=== PATIENT | male | born 1970 | race Caucasian/White ===

== ENCOUNTER 2017-11-17 19:55 | Emergency (ER) | payer OTHER ==
[~2017-11-17] VITALS: Ht 180.3 cm; Wt 74.8 kg
[~2017-11-17 19:55] MED LIST: ACET-787 PO
[2017-11-17 20:00] VITALS: BP 121/86
[2017-11-17 22:56] VITALS: BP 121/86
== END 2017-11-17 22:56 | disposition home or self-care (01) ==
LOC: MED 19:55
DX: I86.8 Varicose veins of other specified sites (principal); E11.9 Type 2 diabetes mellitus without complications; I10 Essential (primary) hypertension; Z88.1 Allergy status to other antibiotic agents; Z79.899 Other long term (current) drug therapy
CPT/HCPCS: 12001; 90715; 99283

== ENCOUNTER 2018-01-01 08:55 | Emergency (ER) | payer OTHER ==
[~2018-01-01] VITALS: Ht 180.3 cm; Wt 73.0 kg
[2018-01-01 09:02] VITALS: BP 128/71
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
--- NOTE | 2018-01-01 09:08 | NUR ---
PT AMBULATES TO BED 2
[2018-01-01] MEDS ORDERED: NACL 0.9% 1,000 ML IV ONE (10:00)
[2018-01-01] MEDS ORDERED: KETOROLAC 30 MG/ML VIAL IVP ONE (10:00)
--- NOTE | 2018-01-01 11:30 | NUR ---
PT RESTING COMFORTABLY IN BED. NO S/S OF DISTRESS NOTED.
[2018-01-01 12:14] LABS: BASOPHILS % (AUTO) 0.5 % (0.0-2.0); EOSINOPHILS # (AUTO) 0.1 K/uL (0-0.4); EOSINOPHILS % (AUTO) 2.7 % (0.0-4.0); HEMATOCRIT 32.1 % (36-52); HEMOGLOBIN 9.5 g/dL (12.0-18.0); LYMPHOCYTES # (AUTO) 0.9 K/uL (2.0-11.5); MEAN CORPUSCULAR HEMOGLOBIN 18 pg (27-31); MEAN CORPUSCULAR HGB CONC 30 g/dL (33-37); MEAN CORPUSCULAR VOLUME 62.1 fL (80-94); MONOCYTES # (AUTO) 0.7 K/uL (0.8-1.0); MONOCYTES % (AUTO) 20.7 % (1.7-9.3); NEUTROPHILS # (AUTO) 1.6 K/uL (1.8-7.7); NEUTROPHILS % (AUTO) 49.1 % (42.2-75.2); PLATELET COUNT (AUTO) 128 K/uL (140-450); RED BLOOD CELL COUNT(AUTO) 5.17 MIL/uL (4.20-6.10); RED CELL DISTRIBUTION WIDTH 22.5 % (11.6-13.7); WHITE BLOOD COUNT (AUTO) 3.3 K/uL (4.8-10.8)
[2018-01-01 12:39] LABS: ALBUMIN 2.5 g/dL (3.4-5.0); CARBON DIOXIDE 27.5 mmol/L (21-32); CREATININE 0.6 mg/dL (0.7-1.3); POTASSIUM 3.5 mmol/L (3.5-5.1); TOTAL BILIRUBIN 1.1 mg/dL (0.0-1.0)
--- NOTE | 2018-01-01 13:31 | NUR ---
PT DSAT ON MONITOR TO 88%, 2L O2 VIA N/C PUT ON. O2 UP TO 92%. NO S/S OF DISTRESS
[2018-01-01 14:06] VITALS: BP 128/69
--- NOTE | 2018-01-01 14:07 | NUR ---
Patient discharged with v/s stable. Written and verbal after care instructions given and explained. Patient alert, oriented and verbalized understanding of instructions. Ambulatory with steady gait. All questions addressed prior to discharge. ID band removed. Patient advised to follow up with PMD. Rx of LOMOTIL 2.5MG-0.025 MG; NAPROSYN 375 MG given. Patient educated on indication of medication including possible reaction and side effects. Opportunity to ask questions provided and answered.
== END 2018-01-01 14:07 | disposition home or self-care (01) ==
LOC: MED 08:55
DX: E86.0 Dehydration (principal); R19.7 Diarrhea, unspecified; G89.29 Other chronic pain; E11.9 Type 2 diabetes mellitus without complications; I10 Essential (primary) hypertension; F17.210 Nicotine dependence, cigarettes, uncomplicated; Z88.0 Allergy status to penicillin
CPT/HCPCS: 36415; 80053; 84484; 85025; 93005; 96361; 96374; 99285; J1885; J7030

== ENCOUNTER 2018-09-02 23:25 | Emergency (ER) | payer OTHER ==
[~2018-09-02] VITALS: Ht 182.9 cm; Wt 81.6 kg
--- NOTE | 2018-09-02 23:29 | NUR ---
PT TAKEN TO BED 7
--- NOTE | 2018-09-02 23:29 | NUR ---
Dr. Casanova evaluating patient at bedside.
[2018-09-02 23:32] VITALS: BP 130/93
--- NOTE | 2018-09-02 23:39 | NUR ---
48/M PRESENTS TO ED, C/O L EAR PAIN X2 DAYS. REPORTS DECREASED HEARING. AOX4, GCS 15, RR EVEN AND UNLABORED. HX "SCREWS ON LEG"
--- NOTE | 2018-09-02 23:54 | NUR ---
Patient discharged with v/s stable. Written and verbal after care instructions given and explained. Patient alert, oriented and verbalized understanding of instructions. Ambulatory with steady gait. All questions addressed prior to discharge. ID band removed. Patient advised to follow up with PMD. Rx of DEBROX given. Patient educated on indication of medication including possible reaction and side effects. Opportunity to ask questions provided and answered.
[2018-09-02 23:55] VITALS: BP 130/93
== END 2018-09-02 23:54 | disposition home or self-care (01) ==
LOC: MED 23:25
DX: H92.02 Otalgia, left ear (principal); Z79.891 Long term (current) use of opiate analgesic; Z88.0 Allergy status to penicillin
CPT/HCPCS: 99282

== ENCOUNTER 2018-10-12 18:29 | Emergency (ER) | payer OTHER ==
[~2018-10-12] VITALS: Ht 175.3 cm; Wt 77.1 kg
--- NOTE | 2018-10-12 18:29 | NUR ---
Patient BIBA ACLS, transferred to bed 4. RN evaluating patient at bedside.
--- NOTE | 2018-10-12 18:30 | NUR ---
48 Y MALE BIBA C/O BLOODY STOOL. PT STATES 3 EPISODES OF BRIGHT RED BLOOD IN STOOL. +ETOH, STATING HE DRANK 3 TALL BOYS. PER [facility], PT WAS FOUND OUTSIDE LAYING ON THE FRONT YARD OF HIS HOUSE, WITH HIS PRESCRIPTION BOTTLES NEXT TO HIM. [facility] UNSURE WHETHER PT OVERDOESED ON MEDICATIONS. PT AAOX4, COOPERATIVE, PINPOINT PUPILS. PT DENIES USING DRUGS. VSS AT THIS TIME. BED IS DOWN, LOCKED, BED RAIL X 1, ERMD NOTIFIED. PMH- DENIES RX- MIRTAZAPINE, CENTRUM MULTIVITAMINS, LITHIUM CARBONATE, HYDROCODONE, ABILIFY
[2018-10-12 18:38] VITALS: BP 143/80
--- NOTE | 2018-10-12 18:43 | NUR ---
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
[2018-10-12] MEDS ORDERED: NACL 0.9% 1,000 ML IV ONE (18:50)
[2018-10-12 19:01] LABS: BASOPHILS % (AUTO) 0.5 % (0.0-2.0); EOSINOPHILS # (AUTO) 0.2 K/uL (0-0.4); EOSINOPHILS % (AUTO) 3.8 % (0.0-4.0); HEMATOCRIT 35.9 % (36-52); HEMOGLOBIN 11.5 g/dL (12.0-18.0); LYMPHOCYTES # (AUTO) 1.4 K/uL (2.0-11.5); LYMPHOCYTES % (AUTO) 29.2 % (20.5-51.1); MEAN CORPUSCULAR HEMOGLOBIN 23 pg (27-31); MEAN CORPUSCULAR HGB CONC 32 g/dL (33-37); MEAN CORPUSCULAR VOLUME 71.8 fL (80-94); MONOCYTES # (AUTO) 0.7 K/uL (0.8-1.0); MONOCYTES % (AUTO) 14.9 % (1.7-9.3); NEUTROPHILS # (AUTO) 2.5 K/uL (1.8-7.7); NEUTROPHILS % (AUTO) 51.6 % (42.2-75.2); PLATELET COUNT (AUTO) 174 K/uL (140-450); RED BLOOD CELL COUNT(AUTO) 4.99 MIL/uL (4.20-6.10); RED CELL DISTRIBUTION WIDTH 21.2 % (11.6-13.7); WHITE BLOOD COUNT (AUTO) 4.9 K/uL (4.8-10.8)
--- NOTE | 2018-10-12 19:11 | NUR ---
PT BEING TAKEN TO CT
[2018-10-12 19:12] LABS: APPEARANCE,URINE CLEAR (CLEAR); BILIRUBIN,URINE NEGATIVE (NEGATIVE); BLOOD, URINE NEGATIVE (NEGATIVE); COLOR,URINE YELLOW (YELLOW); LEUKOCYTE ESTERASE ,URINE NEGATIVE (NEGATIVE); NITRITE, URINE NEGATIVE (NEGATIVE); UGLUCOSE NEGATIVE (NEGATIVE)
[2018-10-12 19:13] LABS: ANION GAP 11.2 (8-16); CARBON DIOXIDE 27.8 mmol/L (21-32); CHLORIDE 106 mmol/L (98-107); CREATININE 0.8 mg/dL (0.7-1.3); GFR ARICAN-AMERICAN 133 mL/min (>90); GLUCOSE 97 mg/dL (74-106); SODIUM SERUM 142 mmol/L (136-145); UREA NITROGEN, BLOOD 8 mg/dL (7-18)
[2018-10-12 19:15] LABS: BARBITURATE, URINE NEG. ng/ml (NEG <=200); BENZODIAZEPINE, URINE NEG. ng/mL (NEG <=200); CANNABINOID, URINE NEG. ng/mL (NEG <=50); COCAINE, URINE NEG. ng/mL (NEG <=300); OPIATE, URINE NEG. ng/mL (NEG <=2000); PHENCYCLIDINE SCREEN,URINE NEG. ng/mL (NEG <=25)
[2018-10-12 19:19] LABS: ALBUMIN 2.9 g/dL (3.4-5.0); ASPARTATE AMINOTRANSFERASE 81 U/L (15-37); TOTAL BILIRUBIN 1.3 mg/dL (0.0-1.0)
[2018-10-12 19:20] LABS: ACETAMINOPHEN < 0.5 ug/ml (10-30); SALICYLATE < 2.8 mg/dL (2.8-20.0)
[2018-10-12] MEDS ORDERED: ESK300 PO (19:30)
--- NOTE | 2018-10-12 19:32 | NUR ---
PT RETURNED FROM CT AT THIS TIME
[2018-10-12] MEDS ORDERED: ARIP5TAB8 PO (19:37)
[2018-10-12] MEDS ORDERED: MIRT15TA PO (19:37)
[2018-10-12] MEDS ORDERED: MULT-2540 PO (19:37)
[2018-10-12] MEDS ORDERED: ACET-787 PO (19:37)
--- NOTE | 2018-10-12 19:39 | NUR ---
VSS AT THIS TIME. PT SLEEPING IN BED, FAMILY BEDSIDE
--- NOTE | 2018-10-12 19:58 | NUR ---
DR REBOLLEDO AT BEDSIDE
--- NOTE | 2018-10-12 20:36 | NUR ---
PT SLEEPING IN BED, VSS AT THIS TIME
[2018-10-12 20:49] VITALS: BP 136/71
--- NOTE | 2018-10-12 20:49 | NUR ---
Patient discharged with v/s stable. Written and verbal after care instructions given and explained. Patient verbalized understanding. Ambulatory with steady gait. All questions addressed prior to discharge. Advised to follow up with PMD.
--- NOTE | 2018-10-12 20:50 | NUR ---
PTS FATHER AT BEDSIDE AND DRIVING HIM HOME
== END 2018-10-12 20:49 | disposition home or self-care (01) ==
LOC: MED 18:29
DX: F10.129 Alcohol abuse with intoxication, unspecified (principal); E11.9 Type 2 diabetes mellitus without complications; I10 Essential (primary) hypertension; Z79.891 Long term (current) use of opiate analgesic; Z79.899 Other long term (current) drug therapy; Z88.0 Allergy status to penicillin
CPT/HCPCS: 36415; 70450; 71045; 72125; 80053; 80305; 81003; 82550; 84484; 85025; 93005; 96360; 99284; G0480; G0482; Q0092; J7030

== ENCOUNTER 2019-01-20 22:58 | Emergency (ER) | payer OTHER ==
[~2019-01-20] VITALS: Ht 182.9 cm; Wt 81.6 kg
[~2019-01-20 22:58] MED LIST changes: +ARIP5TAB8 PO; +ESK300 PO; +MIRT15TA PO; +MULT-2540 PO
[2019-01-20 23:00] VITALS: BP 139/90
--- NOTE | 2019-01-20 23:03 | NUR ---
TO LOBBY VIA W/C A/W BED
--- NOTE | 2019-01-20 23:37 | NUR ---
PT WHEELCHAIR ASSISTED TO BED 10
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
--- NOTE | 2019-01-20 23:52 | NUR ---
Dr. Valera examining patient.
[2019-01-21 00:05] LABS: BASOPHILS % (AUTO) 0.7 % (0.0-2.0); EOSINOPHILS # (AUTO) 0.1 K/uL (0-0.4); EOSINOPHILS % (AUTO) 2.9 % (0.0-4.0); HEMATOCRIT 33.7 % (36-52); HEMOGLOBIN 10.7 g/dL (12.0-18.0); LYMPHOCYTES # (AUTO) 1.1 K/uL (2.0-11.5); LYMPHOCYTES % (AUTO) 27.6 % (20.5-51.1); MEAN CORPUSCULAR HEMOGLOBIN 24 pg (27-31); MEAN CORPUSCULAR HGB CONC 32 g/dL (33-37); MEAN CORPUSCULAR VOLUME 74.2 fL (80-94); MONOCYTES # (AUTO) 0.7 K/uL (0.8-1.0); NEUTROPHILS # (AUTO) 2.2 K/uL (1.8-7.7); NEUTROPHILS % (AUTO) 52.8 % (42.2-75.2); PLATELET COUNT (AUTO) 114 K/uL (140-450); RED BLOOD CELL COUNT(AUTO) 4.54 MIL/uL (4.20-6.10)
[2019-01-21 00:14] LABS: ANION GAP 10.3 (8-16); CARBON DIOXIDE 28.8 mmol/L (21-32); CREATININE 0.7 mg/dL (0.7-1.3); POTASSIUM 3.1 mmol/L (3.5-5.1); RED CELL DISTRIBUTION WIDTH 21.6 % (11.6-13.7); WHITE BLOOD COUNT (AUTO) 4.1 K/uL (4.8-10.8)
[2019-01-21 00:19] LABS: ALBUMIN 2.7 g/dL (3.4-5.0); TOTAL BILIRUBIN 1.2 mg/dL (0.0-1.0)
--- NOTE | 2019-01-21 01:11 | NUR ---
PT RETURN TO CT
--- NOTE | 2019-01-21 01:30 | NUR ---
PT LAYING IN BED SLEEPING, AROUSABLE TO NAME, RR EVEN AND UNLABORED. REPORTS 8/10 LLQ PAIN RADIATING DIFFUSELY, TOLERABLE AT THIS TIME. VSS. ALL NEEDS MET.
[2019-01-21 01:36] LABS: APPEARANCE,URINE CLEAR (CLEAR); BILIRUBIN,URINE NEGATIVE (NEGATIVE); BLOOD, URINE NEGATIVE (NEGATIVE); COLOR,URINE YELLOW (YELLOW); LEUKOCYTE ESTERASE ,URINE NEGATIVE (NEGATIVE); NITRITE, URINE NEGATIVE (NEGATIVE); UGLUCOSE NEGATIVE (NEGATIVE)
[2019-01-21 02:09] LABS: PROTHROMBIN TIME 10.4 secs (10.8-13.4)
[2019-01-21] MEDS ORDERED: PANTOPRAZOLE 40 MG INJ VIAL IVP ONE (03:25)
--- NOTE | 2019-01-21 04:00 | NUR ---
ACCOMPANIED DR JUSTICE FOR GUIAC TEST
--- NOTE | 2019-01-21 04:29 | NUR ---
PT LAYING IN BED SLEEPING, RR EVEN AND UNLABORED, AROUSABLE TO NAME. VSS. ALL NEEDS MET AT THIS TIME.
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
[2019-01-21 05:45] VITALS: BP 134/88
== END 2019-01-21 05:45 | disposition home or self-care (01) ==
LOC: MED 22:58
DX: F10.129 Alcohol abuse with intoxication, unspecified (principal); K62.5 Hemorrhage of anus and rectum; K74.60 Unspecified cirrhosis of liver; I10 Essential (primary) hypertension; E11.9 Type 2 diabetes mellitus without complications; Z88.0 Allergy status to penicillin; Z86.19 Personal history of other infectious and parasitic diseases; Z79.899 Other long term (current) drug therapy
CPT/HCPCS: 36415; 74177; 80053; 81003; 83690; 85025; 85610; 85730; 96374; 99284; C9113; Q9967

== ENCOUNTER 2019-04-08 16:16 | Emergency (ER) | payer OTHER ==
[~2019-04-08] VITALS: Ht 177.8 cm; Wt 80.4 kg
[2019-04-08 17:07] VITALS: BP 107/47
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
--- NOTE | 2019-04-08 17:49 | NUR ---
pt eloped without being seen by provider.
== END 2019-04-08 17:49 | disposition left against medical advice (07) ==
LOC: MED 16:16
DX: M79.661 Pain in right lower leg (principal); Z53.21 Procedure and treatment not carried out due to patient leaving prior to being seen by health care provider

== ENCOUNTER 2019-10-29 15:17 | Emergency (ER) | payer OTHER ==
[~2019-10-29] VITALS: Ht 175.3 cm; Wt 83.9 kg
[2019-10-29 15:28] VITALS: BP 95/56
[2019-10-29] MEDS ORDERED: NACL 0.9% 1,000 ML IV ONE (16:20)
[2019-10-29 16:52] LABS: BASOPHILS % (AUTO) 0.5 % (0.0-2.0); EOSINOPHILS # (AUTO) 0.1 K/uL (0-0.4); EOSINOPHILS % (AUTO) 3.5 % (0.0-4.0); HEMATOCRIT 28.5 % (36-52); HEMOGLOBIN 9.3 g/dL (12.0-18.0); LYMPHOCYTES % (AUTO) 31.1 % (20.5-51.1); MEAN CORPUSCULAR HEMOGLOBIN 27 pg (27-31); MEAN CORPUSCULAR HGB CONC 33 g/dL (33-37); MEAN CORPUSCULAR VOLUME 82.8 fL (80-94); MONOCYTES # (AUTO) 0.5 K/uL (0.8-1.0); MONOCYTES % (AUTO) 15.3 % (1.7-9.3); NEUTROPHILS # (AUTO) 1.6 K/uL (1.8-7.7); NEUTROPHILS % (AUTO) 49.6 % (42.2-75.2); PLATELET COUNT (AUTO) 100 K/uL (140-450); RED BLOOD CELL COUNT(AUTO) 3.45 MIL/uL (4.20-6.10); RED CELL DISTRIBUTION WIDTH 23.1 % (11.6-13.7); WHITE BLOOD COUNT (AUTO) 3.2 K/uL (4.8-10.8)
[2019-10-29 17:04] LABS: APPEARANCE,URINE CLEAR (CLEAR); BILIRUBIN,URINE 1+ (NEGATIVE); BLOOD, URINE NEGATIVE (NEGATIVE); COLOR,URINE AMBER (YELLOW); LEUKOCYTE ESTERASE ,URINE NEGATIVE (NEGATIVE); NITRITE, URINE NEGATIVE (NEGATIVE); PH,URINE 6.5 (5.0-9.0); UGLUCOSE NEGATIVE (NEGATIVE)
[2019-10-29 17:08] LABS: PROTHROMBIN TIME 11.6 secs (10.8-13.4)
[2019-10-29 17:14] LABS: ALBUMIN 2.4 g/dL (3.4-5.0); ANION GAP 10.1 (8-16); CARBON DIOXIDE 28.6 mmol/L (21-32); CREATININE 0.8 mg/dL (0.6-1.3); POTASSIUM 3.7 mmol/L (3.5-5.1); TOTAL BILIRUBIN 1.8 mg/dL (0.0-1.0)
[2019-10-29 20:25] VITALS: BP 111/71
== END 2019-10-29 20:25 | disposition home or self-care (01) ==
LOC: MED 15:17
DX: M25.571 Pain in right ankle and joints of right foot (principal); D61.818 Other pancytopenia; E11.9 Type 2 diabetes mellitus without complications; F10.129 Alcohol abuse with intoxication, unspecified; G89.29 Other chronic pain; I10 Essential (primary) hypertension; Z88.0 Allergy status to penicillin
CPT/HCPCS: 36415; 80053; 81003; 84484; 85025; 85610; 85730; 86886; 86900; 86901; 93005; 99284; J7030

== ENCOUNTER 2020-03-24 11:21 | Emergency (ER) | payer OTHER ==
[~2020-03-24] VITALS: Ht 172.7 cm; Wt 73.9 kg
[~2020-03-24 11:21] MED LIST changes: -ACET-787 PO; +HYDR-5191 PO
[2020-03-24 11:24] VITALS: BP 97/58
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
[2020-03-24] MEDS ORDERED: KETOROLAC 60 MG/2 ML VIAL IM ONE (12:05)
[2020-03-24 12:14] LABS: BASOPHILS % (AUTO) 0.8 % (0.0-2.0); EOSINOPHILS # (AUTO) 0.1 K/uL (0-0.4); EOSINOPHILS % (AUTO) 2.8 % (0.0-4.0); HEMATOCRIT 34.6 % (36-52); HEMOGLOBIN 10.9 g/dL (12.0-18.0); LYMPHOCYTES # (AUTO) 1.2 K/uL (2.0-11.5); LYMPHOCYTES % (AUTO) 26.5 % (20.5-51.1); MEAN CORPUSCULAR HEMOGLOBIN 26 pg (27-31); MEAN CORPUSCULAR HGB CONC 31 g/dL (33-37); MEAN CORPUSCULAR VOLUME 82.9 fL (80-94); MONOCYTES # (AUTO) 0.9 K/uL (0.8-1.0); MONOCYTES % (AUTO) 19.6 % (1.7-9.3); NEUTROPHILS # (AUTO) 2.2 K/uL (1.8-7.7); NEUTROPHILS % (AUTO) 50.3 % (42.2-75.2); PLATELET COUNT (AUTO) 117 K/uL (140-450); RED BLOOD CELL COUNT(AUTO) 4.17 MIL/uL (4.20-6.10); WHITE BLOOD COUNT (AUTO) 4.4 K/uL (4.8-10.8)
--- NOTE | 2020-03-24 12:23 | NUR ---
PT TO XRAY VIA JUWAN.
[2020-03-24 12:27] LABS: ALBUMIN 2.9 g/dL (3.4-5.0); ANION GAP 10.5 (8-16); ASPARTATE AMINOTRANSFERASE 89 U/L (15-37); CARBON DIOXIDE 24.6 mmol/L (21-32); CHLORIDE 106 mmol/L (98-107); CREATININE 0.8 mg/dL (0.6-1.3); GFR ARICAN-AMERICAN 132 mL/min (>90); GLUCOSE 89 mg/dL (74-106); POTASSIUM 3.1 mmol/L (3.5-5.1); SODIUM SERUM 138 mmol/L (136-145); TOTAL BILIRUBIN 1.7 mg/dL (0.0-1.0); UREA NITROGEN, BLOOD 14 mg/dL (7-18)
--- NOTE | 2020-03-24 12:54 | NUR ---
DR ARANDA AT BEDSIDE EVALUATING PT.
[2020-03-24 12:59] LABS: ACETAMINOPHEN < 0.5 ug/ml (10-30); SALICYLATE < 2.8 mg/dL (2.8-20.0)
[2020-03-24 13:00] VITALS: BP 97/58
--- NOTE | 2020-03-24 13:01 | NUR ---
Patient discharged with v/s stable. Written and verbal after care instructions given and explained regard back pain . Patient alert, oriented and verbalized understanding of instructions. Ambulatory with steady gait. All questions addressed prior to discharge. ID band removed. Patient advised to follow up with PMD. Rx of medrol , motrin and tramadol given. Patient educated on indication of medication including possible reaction and side effects. Opportunity to ask questions provided and answered.
[2020-03-24 14:08] LABS: BARBITURATE, URINE NEGATIVE ng/ml (NEG <=200); BENZODIAZEPINE, URINE NEGATIVE ng/mL (NEG <=200); CANNABINOID, URINE NEGATIVE ng/mL (NEG <=50); COCAINE, URINE NEGATIVE ng/mL (NEG <=300); OPIATE, URINE NEGATIVE ng/mL (NEG <=2000); PHENCYCLIDINE SCREEN,URINE NEGATIVE ng/mL (NEG <=25)
== END 2020-03-24 13:01 | disposition home or self-care (01) ==
LOC: MED 11:21
DX: M43.17 Spondylolisthesis, lumbosacral region (principal); I10 Essential (primary) hypertension; Z88.8 Allergy status to other drugs, medicaments and biological substances; Z79.899 Other long term (current) drug therapy
CPT/HCPCS: 36415; 72100; 80053; 80305; 85025; 93005; 96372; 99285; G0480; G0482; J1885

== ENCOUNTER 2020-04-23 14:40 | Emergency (ER) | payer OTHER ==
[~2020-04-23] VITALS: Ht 180.3 cm; Wt 86.2 kg
--- NOTE | 2020-04-23 14:40 | NUR ---
PATIENT BIBA ALS TO ER BED 12
[2020-04-23 14:49] VITALS: BP 98/61
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
--- NOTE | 2020-04-23 15:19 | NUR ---
PT O2 SAT 90%, PUT ON 2L O2 NASAL CANNULA, O2 SAT 98%
--- NOTE | 2020-04-23 16:33 | NUR ---
PT PROVIDED WITH SANDWICH AND JUICE AT BEDSIDE
[2020-04-23 16:48] VITALS: BP 104/65
--- NOTE | 2020-04-23 16:51 | NUR ---
Patient discharged with v/s stable. IV REMOVED WITHOUT DIFFICULTY/COMPLICATIONS, SANDWICH GIVEN TO PT. Written and verbal after care instructions given and explained. Patient verbalized understanding. Ambulatory with squires, steady gait. All questions addressed prior to discharge. Advised to follow up with PMD.
== END 2020-04-23 16:51 | disposition home or self-care (01) ==
LOC: MED 14:40
DX: F10.129 Alcohol abuse with intoxication, unspecified (principal); Z88.0 Allergy status to penicillin; Z79.899 Other long term (current) drug therapy
CPT/HCPCS: 99281; 99282; 99283

== ENCOUNTER 2020-04-29 11:17 | Emergency (ER) | payer OTHER ==
[~2020-04-29] VITALS: Ht 172.7 cm; Wt 70.8 kg
[2020-04-29 11:42] VITALS: BP 128/73
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
--- NOTE | 2020-04-29 11:45 | NUR ---
X-Ray at bedside.
[2020-04-29 12:43] VITALS: BP 132/85
== END 2020-04-29 12:44 | disposition home or self-care (01) ==
LOC: MED 11:17
DX: F10.129 Alcohol abuse with intoxication, unspecified (principal); M25.571 Pain in right ankle and joints of right foot; F17.210 Nicotine dependence, cigarettes, uncomplicated; Z88.0 Allergy status to penicillin; Z98.890 Other specified postprocedural states; Z79.899 Other long term (current) drug therapy
CPT/HCPCS: 73610; 99283; Q0092

== ENCOUNTER 2020-05-14 14:39 | Emergency (ER) | payer OTHER ==
[~2020-05-14] VITALS: Ht 180.3 cm; Wt 86.2 kg
[~2020-05-14 14:39] MED LIST changes: +MIRT-91 PO; -MIRT15TA PO
[2020-05-14 14:40] VITALS: BP 114/78
--- NOTE | 2020-05-14 14:40 | NUR ---
PATIENT XIN EARL, WHEELCHAIRED TO DINORAH SHEPHERD
--- NOTE | 2020-05-14 15:17 | NUR ---
50 y/o male a&oX4 BIBA FOR EVALUATION OF ETOH, C/O GENERALIZED WEAKNESS, PT REQUESTING REHAB HX ETOH ABUSE
--- NOTE | 2020-05-14 15:51 | NUR ---
[place] EMT at pt bedside for EKG.
[2020-05-14 16:14] LABS: BASOPHILS % (AUTO) 1.1 % (0.0-2.0); EOSINOPHILS # (AUTO) 0.2 K/uL (0-0.4); EOSINOPHILS % (AUTO) 3.7 % (0.0-4.0); HEMATOCRIT 35.4 % (36-52); HEMOGLOBIN 11.3 g/dL (12.0-18.0); LYMPHOCYTES # (AUTO) 1.4 K/uL (2.0-11.5); LYMPHOCYTES % (AUTO) 34.9 % (20.5-51.1); MEAN CORPUSCULAR HEMOGLOBIN 25 pg (27-31); MEAN CORPUSCULAR HGB CONC 32 g/dL (33-37); MEAN CORPUSCULAR VOLUME 79.5 fL (80-94); MONOCYTES # (AUTO) 0.9 K/uL (0.8-1.0); NEUTROPHILS # (AUTO) 1.6 K/uL (1.8-7.7); NEUTROPHILS % (AUTO) 38.3 % (42.2-75.2); PLATELET COUNT (AUTO) 88 K/uL (140-450); RED BLOOD CELL COUNT(AUTO) 4.45 MIL/uL (4.20-6.10); RED CELL DISTRIBUTION WIDTH 21.6 % (11.6-13.7); WHITE BLOOD COUNT (AUTO) 4.1 K/uL (4.8-10.8)
[2020-05-14 17:00] LABS: ALBUMIN 2.9 g/dL (3.4-5.0); ANION GAP 11.9 (8-16); CARBON DIOXIDE 28.3 mmol/L (21-32); POTASSIUM 3.2 mmol/L (3.5-5.1); TOTAL BILIRUBIN 1.7 mg/dL (0.0-1.0)
--- NOTE | 2020-05-14 17:31 | NUR ---
Pt sleeping, visible rise and fall of chest, VSS. Will continue to monitor.
--- NOTE | 2020-05-14 18:13 | NUR ---
Provided pt with food, HOB elevated.
--- NOTE | 2020-05-14 18:20 | NUR ---
Pt ambulated to restroom with steady gait.
--- NOTE | 2020-05-14 19:00 | NUR ---
Pt discharged without paperwork, ambulatory with steady gait. VSS prior to leaving
[2020-05-14 19:09] VITALS: BP 109/66
== END 2020-05-14 19:00 | disposition home or self-care (01) ==
LOC: MED 14:39
DX: F10.129 Alcohol abuse with intoxication, unspecified (principal)
CPT/HCPCS: 36415; 80053; 85025; 93005; 99284

== ENCOUNTER 2020-08-30 08:40 | Emergency (ER) | payer OTHER ==
[~2020-08-30] VITALS: Ht 182.9 cm; Wt 72.6 kg
--- NOTE | 2020-08-30 08:47 | NUR ---
Patient ambulated to bed 12 with steady gait. RN at bedside evaluating patient
[2020-08-30 08:48] VITALS: BP 13/80
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
--- NOTE | 2020-08-30 09:24 | NUR ---
DR SCHWAB AT BEDSIDE FOR STAPLE REMOVAL.
[2020-08-30 09:36] VITALS: BP 13/80
== END 2020-08-30 09:37 | disposition home or self-care (01) ==
LOC: MED 08:40
DX: S01.81XD Laceration without foreign body of other part of head, subsequent encounter (principal); Z88.0 Allergy status to penicillin; Z79.899 Other long term (current) drug therapy; X58.XXXD Exposure to other specified factors, subsequent encounter
CPT/HCPCS: 99281

== ENCOUNTER 2020-12-06 11:59 | Emergency (ER) | payer OTHER ==
[~2020-12-06] VITALS: Ht 182.9 cm; Wt 84.4 kg
[2020-12-06 12:10] VITALS: BP 138/87
[2020-12-06 14:45] VITALS: BP 138/87
== END 2020-12-06 14:45 | disposition home or self-care (01) ==
LOC: MED 11:59
DX: S09.90XA Unspecified injury of head, initial encounter (principal); Z88.0 Allergy status to penicillin; W01.198A Fall on same level from slipping, tripping and stumbling with subsequent striking against other object, initial encounter; Y93.89 Activity, other specified; Y92.89 Other specified places as the place of occurrence of the external cause; Y99.8 Other external cause status
CPT/HCPCS: 70450; 72125; 99285

== ENCOUNTER 2021-01-27 12:12 | Emergency (ER) | payer OTHER ==
[~2021-01-27] VITALS: Ht 182.9 cm; Wt 81.6 kg
[2021-01-27 12:16] VITALS: BP 108/64
--- NOTE | 2021-01-27 12:16 | NUR ---
PT SENT TO LOBBY TO WAIT FOR AVAILABLE BED.
--- NOTE | 2021-01-27 13:10 | NUR ---
PT OBSERVED THROUGH [facility]AGE [facility] AMBULATING FROM ER ENTRANCE DOORS TO RESTROOM USING A CANE WITH STEADY GAIT.
[2021-01-27] MEDS ORDERED: ACET-10509 PO (13:13)
[2021-01-27] MEDS ORDERED: IBUPROFEN 600 MG TAB PO ONE (13:15)
[2021-01-27 13:36] VITALS: BP 108/64
== END 2021-01-27 13:36 | disposition home or self-care (01) ==
LOC: MED 12:12
DX: S46.811A Strain of other muscles, fascia and tendons at shoulder and upper arm level, right arm, initial encounter (principal); M79.10 Myalgia, unspecified site; Z79.899 Other long term (current) drug therapy; Z88.0 Allergy status to penicillin; W18.30XA Fall on same level, unspecified, initial encounter; Y93.89 Activity, other specified; Y92.89 Other specified places as the place of occurrence of the external cause; Y99.8 Other external cause status
CPT/HCPCS: 73030; 99283

== ENCOUNTER 2021-01-28 20:06 | Emergency (ER) | payer OTHER ==
[~2021-01-28] VITALS: Ht 180.3 cm; Wt 72.6 kg
[~2021-01-28 20:06] MED LIST changes: +ACET-10509 PO
[2021-01-28 20:10] VITALS: BP 113/71
--- NOTE | 2021-01-28 20:30 | NUR ---
TO LOBBY A/W BED, AMBULATORY
[2021-01-28] MEDS ORDERED: KETOROLAC 30 MG/ML VIAL IM ONE (23:35)
[2021-01-29 00:18] VITALS: BP 128/60
--- NOTE | 2021-01-29 00:18 | NUR ---
VSS. PT TAKEN BACK TO LOBBY VIA W.C. PER PT REQUEST.
--- NOTE | 2021-01-29 01:00 | NUR ---
Note yumiko in ED - 01/29/21 at 0601 by [email or web address] CALLED PATIENT. NO ANSWER. LEFT WITHOUT D/C PAPERS. WHEELCHAIR LEFT BEHIND IN [facility].
--- NOTE | 2021-01-29 01:00 | NUR ---
CALLED PATIENT. NO ANSWER. PT ELOPED. WHEELCHAIR LEFT BEHIND IN LOBBY.
== END 2021-01-29 01:00 | disposition left against medical advice (07) ==
LOC: MED 20:06
DX: M54.5 Low back pain (principal); Z88.0 Allergy status to penicillin; W19.XXXA Unspecified fall, initial encounter; Y93.89 Activity, other specified; Y92.89 Other specified places as the place of occurrence of the external cause; Y99.8 Other external cause status
CPT/HCPCS: 72110; 96372; 99283; J1885

== ENCOUNTER 2021-06-05 13:30 | Emergency (ER) | payer OTHER ==
[~2021-06-05] VITALS: Ht 182.9 cm; Wt 86.2 kg
[2021-06-05 14:09] VITALS: BP 112/56
--- NOTE | 2021-06-05 14:30 | NUR ---
NO NURSING INTERVENTIONS NEEDED. SEEN& TREATED BY DILCIA TREVINO.
[2021-06-05] MEDS ORDERED: BACITRACIN OINT 500 UNITS/GM PKT TP ONE ×2 (14:34→14:35)
[2021-06-05] MEDS ORDERED: BACI1PAC6 TP (14:37)
[2021-06-05 15:00] VITALS: BP 112/56
--- NOTE | 2021-06-05 15:00 | NUR ---
Patient discharged with v/s stable. DISCHARGE WITHOUT DISCAHRGE INSTRUCTION. Patient alert, oriented and verbalized understanding of instructions. Ambulatory with steady gait. All questions addressed prior to discharge. ID band removed. Patient advised to follow up with PMD. Rx of BACITRACIN OINTMENT given. Patient educated on indication of medication including possible reaction and side effects. Opportunity to ask questions provided and answered.
== END 2021-06-05 15:00 | disposition home or self-care (01) ==
LOC: MED 13:30
DX: S01.111D Laceration without foreign body of right eyelid and periocular area, subsequent encounter (principal); Z88.0 Allergy status to penicillin; Z79.899 Other long term (current) drug therapy; X58.XXXD Exposure to other specified factors, subsequent encounter
CPT/HCPCS: 99282

== ENCOUNTER 2022-01-12 13:59 | Emergency (ER) | payer OTHER ==
[~2022-01-12] VITALS: Ht 182.9 cm; Wt 77.6 kg
[~2022-01-12 13:59] MED LIST changes: +BACI1PAC6 TP
[2022-01-12 14:06] VITALS: BP 146/98
[2022-01-12] MEDS ORDERED: ACETAMINOPHEN 325 MG TAB PO ONE (14:20)
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
[2022-01-12] MEDS ORDERED: ACETAMINOPHEN 325 MG TAB ONE (14:25)
[2022-01-12] MEDS ORDERED: ACET-9882 PO (15:42)
--- NOTE | 2022-01-12 16:08 | NUR ---
ATTEMPTED TO BRING PT BACK TO APPLY BRAYAN WRAP, NOT FOUND IN LOBBY/OUTSIDE
--- NOTE | 2022-01-12 16:22 | NUR ---
LAST ATTEMPT TO BRING PT BACK, NO ANSWER IN LOBBY/OUTSIDE. PT LEFT WITHOUT D/C PAPERS. NO BRAYAN WRAP PROVIDED
== END 2022-01-12 16:08 | disposition home or self-care (01) ==
LOC: MED 13:59
DX: S90.02XA Contusion of left ankle, initial encounter (principal); R03.0 Elevated blood-pressure reading, without diagnosis of hypertension; Z88.0 Allergy status to penicillin; Z79.899 Other long term (current) drug therapy; X58.XXXA Exposure to other specified factors, initial encounter; Y93.89 Activity, other specified; Y92.89 Other specified places as the place of occurrence of the external cause; Y99.8 Other external cause status
CPT/HCPCS: 73610; 99283

== ENCOUNTER 2022-06-20 15:00 | Emergency (ER) | payer OTHER ==
[~2022-06-20] VITALS: Ht 170.2 cm; Wt 81.6 kg
[~2022-06-20 15:00] MED LIST changes: +ACET-9882 PO; +BACI-416 TP; -BACI1PAC6 TP
[2022-06-20 15:15] VITALS: BP 139/74
--- NOTE | 2022-06-20 22:57 | NUR ---
CALLED TO BE SEEN BY DOMINGO SILVA. NO ANSWER.
== END 2022-06-20 22:57 | disposition left against medical advice (07) ==
LOC: MED 15:00
DX: M25.561 Pain in right knee (principal); M25.511 Pain in right shoulder; Z53.21 Procedure and treatment not carried out due to patient leaving prior to being seen by health care provider